=== PATIENT | male | born 1960 | race Caucasian/White ===

== ENCOUNTER 2021-12-05 08:22 | Outpatient (CLI) | payer BC ==
[2021-12-05 10:34] LABS: Anion Gap 14 mmol/L (10-20); BUN (Urea Nitrogen) 16 mg/dL (8.4-25.7); Calc. Creatinine Clearance 0 mL/min (70-130); Carbon Dioxide 28 mmol/L (22-29); Chloride 102 mmol/L (98-107); Glucose 94 mg/dL (70-105); Potassium 5.2 mmol/L (3.5-5.1); Sodium 139 mmol/L (136-145)
[2021-12-06 17:50] LABS: SARS-CoV-2 PCR by NAA DETECTED (NotDetected)
== END 2021-12-05 08:23 | disposition home or self-care (01) ==
LOC: CSHLAB 08:22
PROVIDERS: ATTEND Specialist
DX: U07.1 COVID-19 (principal)
CPT/HCPCS: 80048; 93005; 93010; U0003; U0005

== ENCOUNTER → 2022-01-12 | Day surgery (SDC) | payer BC ==
[~2022-01-12] MED LIST: Lidocaine 1% PF 5 ML VIAL ONE; PROPOFOL 20 ML ONE; PROPOFOL 200 MG/20 ML VIAL ONE
== END ==
LOC: CSHSDC 11:08
PROVIDERS: ATTEND Specialist
DX: I48.0 Paroxysmal atrial fibrillation (principal); I34.0 Nonrheumatic mitral (valve) insufficiency; K21.9 Gastro-esophageal reflux disease without esophagitis; Z87.891 Personal history of nicotine dependence; E78.2 Mixed hyperlipidemia; Z79.899 Other long term (current) drug therapy
CPT/HCPCS: 92960; 93005; 93010; 93312; J2704

== ENCOUNTER 2024-03-21 06:26 | Day surgery (SDC) | payer BC ==
[2024-03-21 07:08] VITALS: BP 150/95; TEMP 97.4
[2024-03-21 07:23] LABS: Anion Gap 12 mmol/L (10-20); BUN (Urea Nitrogen) 19 mg/dL (8.4-25.7); Calc. Creatinine Clearance 98 mL/min (70-130); Calcium 9.3 mg/dL (7.8-10.44); Carbon Dioxide 25 mmol/L (23-31); Chloride 108 mmol/L (98-107); Estimated GFR 71; Glucose 111 mg/dL (80-115); Potassium 4.4 mmol/L (3.5-5.1); Sodium 141 mmol/L (136-145)
[2024-03-21] MEDS ORDERED: PROPOFOL 200 MG/20 ML VIAL ONE (18:29)
[2024-03-21] MEDS ORDERED: Lidocaine 1% (PF) 30 ML VIAL ONE (18:33)
== END 2024-03-21 08:31 | disposition home or self-care (01) ==
LOC: CSHSDC 06:26
PROVIDERS: ATTEND Specialist
PROC: 5A2204Z Restoration of Cardiac Rhythm, Single (ICD-10-PCS; principal; 2024-03-21)
DX: I48.19 Other persistent atrial fibrillation (principal); E78.2 Mixed hyperlipidemia; K21.9 Gastro-esophageal reflux disease without esophagitis; Z87.891 Personal history of nicotine dependence; Z79.01 Long term (current) use of anticoagulants; Z79.899 Other long term (current) drug therapy
CPT/HCPCS: 80048; 92960; 93005; 93010; J2001; J2704

== ENCOUNTER 2024-04-17 12:16 | Day surgery (SDC) | payer BC ==
[2024-04-17] MEDS ORDERED: PROPOFOL 40 ML ONE (13:15)
[2024-04-17 15:04] VITALS: BP 160/80; TEMP 98.7
== END 2024-04-17 15:00 | disposition home or self-care (01) ==
LOC: CSHSDC 12:16
PROVIDERS: ATTEND Specialist
PROC: B24BZZ4 Ultrasonography of Heart with Aorta, Transesophageal (ICD-10-PCS; principal; 2024-04-17)
DX: I48.19 Other persistent atrial fibrillation (principal); E78.2 Mixed hyperlipidemia; K21.9 Gastro-esophageal reflux disease without esophagitis; I34.0 Nonrheumatic mitral (valve) insufficiency; Z79.01 Long term (current) use of anticoagulants; Z79.899 Other long term (current) drug therapy; Z98.890 Other specified postprocedural states; Z87.891 Personal history of nicotine dependence
CPT/HCPCS: 93312; J2704